=== PATIENT | female | born 1955 | race Two or more races ===

== ENCOUNTER 2019-09-26 08:54 | Observation (INO) | payer MEDICARE, MEDICAID ==
[~2019-09-26] VITALS: Ht 160 cm; Wt 82.9 kg
[~2019-09-26 08:54] MED LIST: AMLO10TA8 PO; ATOR40TA78 PO; GABA300C10 PO; METO25TA91 PO; POTA10TA6 PO
[2019-09-26] MEDS ORDERED: POTA10TA6 PO (09:09)
--- NOTE | 2019-09-26 09:09 | NUR ---
PT BIB [facility] FOR EXTENDED STAY HOTEL FOR SOB AND "PAIN IN RIGHT KIDNEY." PER EMS, ON SCENE FSBG 158, 99% ON ROOM AIR, NO INCREASED WORK OF BREATHING. PER EMS, PT WAS DIAGNOSED WITH RIGHT KIDNEY CANCER APPROX. 4 WEEKS AGO AND UNDERWENT A CRYOABLATION AT [facility] WITH DR. LORENZO ON 09/14. PT SITTING UPRIGHT IN GURNEY, NO SOB, RESPIRATORY RATE 16-18, 95-99% ROOM AIR. PT DRESSED IN GOWN AND ATTACHED TO MONITOR. CALL LIGHT WITHIN REACH, SIDRAIL X [address]. PT STATES INTERMITTENT NAUSEA X 2 WEEKS. MD AT BEDSIDE.
--- NOTE | 2019-09-26 09:22 | NUR ---
PIV ESTABLISHED AND LABS DRAWN.
[2019-09-26 10:12] LABS: BASOPHILS # (AUTO) 0.03 x10^3/uL (0-0.1); BASOPHILS % (AUTO) 0 % (0-1); EOSINOPHILS % (AUTO) 1 % (1-7); LYMPHOCYTES # (AUTO) 2.48 x10^3/uL (1-3.4); LYMPHOCYTES % (AUTO) 18 % (22-44); MD NO; MEAN CORPUSCULAR HEMOGLOBIN 26.5 pg (27.0-34.8); MEAN CORPUSCULAR VOLUME 80.3 fL (80-100); MEAN PLATELET VOLUME 8.1 fL (7.4-10.4); MONOCYTES # (AUTO) 0.67 x10^3/uL (0.2-0.8); MONOCYTES % (AUTO) 5 % (2-9); NEUTROPHILS # (AUTO) 10.39 x10^3/uL (1.8-6.8); NEUTROPHILS % (AUTO) 76 % (42-75); PLATELET COUNT 574 x10^3/uL (130-400); RED BLOOD COUNT 5.15 x10^6/uL (3.82-5.3); RED CELL DISTRIBUTION WIDTH 17.2 % (9.6-15.2)
[2019-09-26 10:19] LABS: ALANINE AMINOTRANSFERASE 24 U/L (12-78); ALBUMIN 3.8 g/dL (3.4-5.0); ANION GAP 10 mmol/L (5-15); CALCIUM 9.2 mg/dL (8.5-10.1); CHLORIDE 105 mmol/L (98-107); CREATININE 0.98 mg/dL (0.55-1.02)
--- NOTE | 2019-09-26 10:20 | NUR ---
PT TO RESTROOM FOR URINE SAMPLE, WALKED TO LAB. LAB AT BEDSIDE FOR BLOOD CULTURE DRAW, PT TO CT.
[2019-09-26 10:22] LABS: ALKALINE PHOSPHATASE 100 U/L (45-117); BILIRUBIN,TOTAL 0.5 mg/dL (0.2-1.0); TOTAL PROTEIN 7.9 g/dL (6.4-8.2)
[2019-09-26 11:01] LABS: CULTURE INDICATED? YES; MICROSCOPIC INDICATED
--- NOTE | 2019-09-26 11:12 | NUR ---
PT BACK FROM CT.
--- NOTE | 2019-09-26 11:30 | NUR ---
ALL RESULTS BACK AT THIS TIME, CHART UP FOR RECHECK.
--- NOTE | 2019-09-26 12:08 | NUR ---
PT TO RESTROOM VIA WHEELCHAIR, PLACED ON HOSPITAL BED FOR HOLD.
--- NOTE | 2019-09-26 12:16 | NUR ---
MED REC COMPLETED.
--- NOTE | 2019-09-26 12:56 | NUR ---
[facility] AT BEDSIDE.
--- NOTE | 2019-09-26 12:58 | NUR ---
DIET TRAY ORDERED.
[2019-09-26] MEDS ORDERED: IBUPROFEN 600 MG TABLET PO PRN (13:00)
[2019-09-26] MEDS ORDERED: ACETAMINOPHEN 325 MG TABLET PO PRN (13:00)
[2019-09-26] MEDS ORDERED: ONDANSETRON ODT 4 MG PO PRN (13:00)
[2019-09-26] MEDS ORDERED: hydrALAzine 20 MG/ML, 1ML IVPush PRN (13:00)
[2019-09-26] MEDS ORDERED: ONDANSETRON 2MG/ML, 2ML IVPush PRN (13:00)
--- NOTE | 2019-09-26 14:17 | NUR ---
REPORT GIVEN TO GIOVANY HANNAH. PT TO TRANSFER TO INPATIENT STATUS.
[2019-09-26 14:49] VITALS: BP 104/54
[2019-09-26] MEDS: NS + 20MEQ KCL 1,000 ML IV SCH (15:46)
[2019-09-26] MEDS ORDERED: DEXTROSE 4 GM TAB.CHEW PO PRN (16:30)
[2019-09-26] MEDS ORDERED: DEXTROSE 50%, 50ML SYRINGE IVPush PRN (16:30)
[2019-09-26] MEDS ORDERED: GLUCAGON 1 MG IM PRN (16:30)
[2019-09-26] MEDS: GABAPENTIN 300 MG CAPSULE PO SCH ×2 (16:58→20:46)
[2019-09-26 18:45] LABS: MICROSCOPIC INDICATED
[2019-09-26 18:46] VITALS: BP 126/85
[2019-09-26 18:46] LABS: CULTURE INDICATED? YES
[2019-09-26] MEDS: INSULIN LISPRO 100 UNITS/ML, PEN SQ-INSULIN SCH (20:49)
[2019-09-26] MEDS: SODIUM CHLORIDE FLUSH 10ML SYR IVF SCH (20:49)
[2019-09-27 04:00] VITALS: BP 137/86
[2019-09-27] MEDS: NS + 20MEQ KCL 1,000 ML IV SCH (04:37)
[2019-09-27 05:01] LABS: BASOPHILS # (AUTO) 0.03 x10^3/uL (0-0.1); BASOPHILS % (AUTO) 0 % (0-1); EOSINOPHILS # (AUTO) 0.22 x10^3/uL (0-0.4); EOSINOPHILS % (AUTO) 2 % (1-7); LYMPHOCYTES # (AUTO) 3.44 x10^3/uL (1-3.4); LYMPHOCYTES % (AUTO) 36 % (22-44); MD NO; MEAN CORPUSCULAR HEMOGLOBIN 26.4 pg (27.0-34.8); MEAN CORPUSCULAR HGB CONC 32.9 g/dL (32.4-35.8); MEAN CORPUSCULAR VOLUME 80.3 fL (80-100); MONOCYTES # (AUTO) 0.72 x10^3/uL (0.2-0.8); MONOCYTES % (AUTO) 7 % (2-9); NEUTROPHILS # (AUTO) 5.27 x10^3/uL (1.8-6.8); NEUTROPHILS % (AUTO) 55 % (42-75); PLATELET COUNT 486 x10^3/uL (130-400); RED BLOOD COUNT 4.45 x10^6/uL (3.82-5.3); RED CELL DISTRIBUTION WIDTH 17.1 % (9.6-15.2)
[2019-09-27 05:05] LABS: ANION GAP 7 mmol/L (5-15); CALCIUM 8.7 mg/dL (8.5-10.1); CHLORIDE 108 mmol/L (98-107); CREATININE 0.79 mg/dL (0.55-1.02)
[2019-09-27] MEDS ORDERED: METOPROLOL SUCCINATE 25 MG TAB.ER.24H PO SCH (06:00)
[2019-09-27] MEDS: INSULIN LISPRO 100 UNITS/ML, PEN SQ-INSULIN SCH ×2 (07:00→11:00)
[2019-09-27 07:39] VITALS: BP 103/63
[2019-09-27] MEDS: GABAPENTIN 300 MG CAPSULE PO SCH (07:59)
[2019-09-27] MEDS: SODIUM CHLORIDE FLUSH 10ML SYR IVF SCH (07:59)
[2019-09-27] MEDS ORDERED: AMLODIPINE 10 MG TAB PO SCH (09:00)
[2019-09-27] MEDS ORDERED: SENNA/DOCUSATE TABLET PO PRN (12:00)
[2019-09-27] MEDS ORDERED: OXYcodone/APAP 5/325MG TABLET PO PRN (12:00)
[2019-09-27] MEDS ORDERED: CYCLOBENZAPRINE 10 MG TABLET PO PRN (13:00)
[2019-09-27] MEDS ORDERED: SULFAMETH./TRIMETHOPRIM DS 800MG/160MG TABLET ONE (13:36)
[2019-09-27 14:05] VITALS: BP 137/74
[2019-09-27] MEDS ORDERED: CYCL-259 PO (15:53)
[2019-09-27] MEDS ORDERED: Sulfameth./Trimethoprim Ds PO (15:53)
[2019-09-27] MEDS ORDERED: SULFAMETH./TRIMETHOPRIM DS 800MG/160MG TABLET PO SCH (21:00)
== END 2019-09-27 16:14 | disposition home or self-care (01) ==
LOC: ED 11:27 → INTOOBSV 11:28 → EDIP 11:28 → ED 11:43 → 4NW 14:41
PROVIDERS: ADMIT Hospitalist; ATTEND Internal Medicine
DX: R10.9 Unspecified abdominal pain (principal); R53.1 Weakness; R11.2 Nausea with vomiting, unspecified; R29.810 Facial weakness; E11.42 Type 2 diabetes mellitus with diabetic polyneuropathy; I11.9 Hypertensive heart disease without heart failure; J45.909 Unspecified asthma, uncomplicated; E78.5 Hyperlipidemia, unspecified; E66.9 Obesity, unspecified; F41.8 Other specified anxiety disorders; M19.90 Unspecified osteoarthritis, unspecified site; C64.9 Malignant neoplasm of unspecified kidney, except renal pelvis; R06.00 Dyspnea, unspecified; E86.0 Dehydration; F12.90 Cannabis use, unspecified, uncomplicated; Z85.43 Personal history of malignant neoplasm of ovary; Z79.899 Other long term (current) drug therapy; Z85.528 Personal history of other malignant neoplasm of kidney; Z90.710 Acquired absence of both cervix and uterus
CPT/HCPCS: 36415; 70450; 74176; 80048; 80053; 81001; 82962; 83605; 85025; 87040; 87086; 96360; 96361; 97162; 97166; 99285; G0378; J3480